=== PATIENT | female | born 1990 | race Two or more races ===

== ENCOUNTER 2023-11-17 13:40 | Emergency (ER) | payer OTHER ==
[~2023-11-17] VITALS: Ht 157.5 cm; Wt 45.4 kg
== END 2023-11-17 16:34 | disposition home or self-care (01) ==
LOC: ER 13:41
DX: F41.9 Anxiety disorder, unspecified (principal)

== ENCOUNTER 2024-03-22 12:30 | Emergency (ER) | payer OTHER ==
[~2024-03-22] VITALS: Ht 157.5 cm; Wt 45.4 kg
[2024-03-22 15:06] LABS: HEMATOCRIT 32.2 % (36.0-45.00); HEMOGLOBIN 10.8 g/dL (12.0-15.00); MEAN CORPUSCULAR HEMOGLOBIN 25.8 pg (27.00-32.0); MEAN CORPUSCULAR HGB CONC 33.5 g/dl (32.0-36.0); PLATELET COUNT 535 K/uL (150-450); RED BLOOD COUNT 4.18 M/uL (4.00-6.00)
[2024-03-22 15:35] LABS: CALCIUM 9.5 mg/dL (8.5-10.1); CREATININE SERUM 0.44 mg/dL (0.55-1.02); GFR 162.72; POTASSIUM 3.85 mEq/L (3.5-5.1)
== END 2024-03-22 16:10 | disposition home or self-care (01) ==
LOC: ER 12:30
PROVIDERS: General Practice
DX: I47.19 Other supraventricular tachycardia (principal)